=== PATIENT | male | born 1965 | race Caucasian/White ===

== ENCOUNTER 2021-04-16 05:33 | Outpatient (CLI) | payer BC ==
[~2021-04-16] VITALS: Ht 175.3 cm; Wt 90.9 kg
== END 2021-04-16 09:31 | disposition home or self-care (01) ==
LOC: PREOP 05:33
PROVIDERS: ATTEND Internal Medicine
DX: Z01.818 Encounter for other preprocedural examination (principal)

== ENCOUNTER 2021-04-21 07:09 | Day surgery (SDC) | payer BC ==
--- NOTE | 2021-04-16 07:17 | HISTORY AND PHYSICAL ---
DATE OF SERVICE: COLONOSCOPY HISTORY AND PHYSICAL HISTORY OF PRESENT ILLNESS: The patient is a 55-year-old white male being set up for his first screening colonoscopy. He is deemed to be of average risk as he is not aware of any family history for colon cancer or colon polyps. He denies bright red blood per rectum or change in bowel habit, abdominal pain or change in weight. He does report several year history of erectile dysfunction. He has utilized sildenafil in the past to good effect allowing adequate erection for penetration. He has noticed some diminishment in libido over the past several years. Reports no significant alcohol intake. He quit smoking cigarettes about 10 years ago, but is still vaping on a regular basis and would like to get off of nicotine altogether. He had good response in the past to Chantix with no reported side effects. PHYSICAL EXAMINATION: GENERAL: Reveals a white male, appeared to be in no acute distress. VITAL SIGNS: He is 5 feet 9 inches tall, weighing 202 pounds. Blood pressure 132/86. HEENT: Unremarkable. CHEST: Clear. CARDIOVASCULAR: Reveals a regular rate and rhythm without murmur, S3 or S4. ABDOMEN: Soft, supple without mass, organomegaly or tenderness. EXTREMITIES: Reveal no cyanosis, clubbing or edema. RECTAL: Deferred to the time of colonoscopy. ASSESSMENT AND PLAN: 1. The patient was set up for his first screening colonoscopy next Tuesday. Prep instructions with the Suprep kit were given and questions answered. 2. Erectile dysfunction. After discussion about appropriate utilization sildenafil 100 mg tabs, take one-half to one tab 1 to 4 hours prior to relations, given #10. 3. Nicotine dependence, currently in the form of vaping. He was advised to return to discuss with MARK Ashton. A prescription for Chantix will have to be obtained through [facility] as it is currently unavailable in [facility]. 4. Lastly, the patient had been having difficulty with focus. He tried significant other's Adderall noted that it returned his focus to normal and he asked whether or not it might be appropriate for him. He was told that would require more in-depth discussion then what I had time for today setting up colonoscopy and this can be discussed in the future. I did discuss the fact that his cholesterol was mildly elevated not to mention erectile dysfunction, decreased libido and possible ADD would all likely improve cutting back on carbohydrates. He does get a fair amount of sugar in his diet may help all of these conditions and I would rather have him address this issue first. He was told to ideally cut out sweetened tea or at least signifficantly cut back consumption. Job ID: [id number] DocumentID: [id number] Dictated Date: 04/15/2021 16:57:28 Fur Tailor Date: 04/15/2021 17:24:28 Dictated By: YANI LOPEZ MD MTDD
[~2021-04-21] VITALS: Ht 175.3 cm; Wt 90.9 kg
[2021-04-21 07:30] VITALS: BP 117/84
[2021-04-21] MEDS ORDERED: D5 LR IV SOLUTION 1,000 ML IV ONE (07:35)
[2021-04-21] MEDS ORDERED: D5 LR IV SOLUTION 1,000 ML IV STA (07:35)
--- NOTE | 2021-04-21 07:36 | Pre-Op Note & Conscious Sedat ---
Pre-Operative Progress Note H&P Reviewed The H&P was reviewed, patient examined and no changes noted. Date H&P Reviewed: Apr 21, 2021 Time H&P Reviewed: 07:36 Conscious Sedation Pre-Proced ASA Score 1 For ASA 3 and 4: Consider anesthesia and medical clearance. Also, for patients with a history of failed moderate sedation consider anesthesia. Airway Lungs Heart ASA score ASA 1: a normal healthy patient ASA 2: a patient with a mild systemic disease (mid diabetes, controlled hypertension, obesity ASA 3: a patient with a severe systemic disease that limits activity (angina, COPD, prior Myocardial infarction) ASA 4: a patient with an incapacitating disease that is a constant threat to life (CHF, renal failure) ASA 5: a moribund patient not expected to survive 24 hrs. (ruptured aneurysm) ASA 6: a declared brain- patient whose organs are being harvested. For emergent operations, add the letter E after the classification Mallampati Classification Grade 2 Sedation Plan Analgesia, Amnesia, Plan communicated to team members, Discussed options with patient/fam, Discussed risks with patient/fam The patient is an appropriate candidate to undergo the planned procedure, sedation, and anesthesia. The patient immediately re-assessed prior to indication. YANI LOPEZ MD Apr 21, 2021 07:36
[2021-04-21 07:43] VITALS: BP 117/84
[2021-04-21] MEDS ORDERED: MIDAZOLAM 5 MG/5 ML (VERSED) VIAL IV ONE (07:45)
[2021-04-21] MEDS ORDERED: fentaNYL INJ 100 MCG/2 ML AMP IVP ONE (07:45)
[2021-04-21] MEDS ORDERED: LIDOCAINE JELLY 2% 6 ML SYRINGE MM PRN (07:45)
[2021-04-21] MEDS ORDERED: fentaNYL INJ 100 MCG/2 ML AMP ONE (07:46)
[2021-04-21] MEDS ORDERED: MIDAZOLAM 5 MG/5 ML (VERSED) VIAL ONE (07:46)
[2021-04-21 08:20] VITALS: BP 111/78
[2021-04-21 08:25] VITALS: BP 112/75
[2021-04-21 08:58] VITALS: BP 96/65
--- NOTE | 2021-04-21 13:26 | OPERATIVE REPORT ---
DATE OF SERVICE: COLONOSCOPY SUMMARY PRIMARY CARE PROVIDER: Yani Lopez MD INDICATION FOR PROCEDURE: Screening colonoscopy. The patient was placed in the left lateral decubitus position. Prior to undergoing colonoscopy, digital rectal evaluation was performed. Anal sphincter tone was normal. Perianal reflexes intact. The prostate is mildly enlarged, anodular and nontender to digital inspection. No abnormalities were noted on digital inspection of anal canal or distal rectal vault. The colonoscope was then inserted into the rectum and under direct visualization advanced to cecum. Cecum was identified by identification of ileocecal valve, cecal strap and the appendiceal orifice. Photographic documentation was obtained. Careful inspection was made as colonoscope withdrawn. The patient tolerated the procedure well. Quality of prep was good. FINDINGS: There was no evidence for internal or external hemorrhoids. Present in the mid rectum was a 4 mm sessile adenomatous appearing polyp. It was photographed and biopsied and ablated with no subsequent blood loss. The sigmoid colon, descending colon, splenic flexure, transverse colon, hepatic flexure, ascending colon, and cecum were unremarkable. There was no evidence for diverticular disease. ASSESSMENT: One diminutive 4 mm sessile polyp was removed via hot biopsy forceps from the mid-rectum. This is otherwise normal colonoscopy to the cecum. As long as there are no surprise on histopathology, considering the patient reports no family history of colon cancer, will be advocating repeat screening colonoscopy in 10 years. Job ID: [id number] DocumentID: [id number] Dictated Date: 04/21/2021 08:49:22 Ward Attendant Date: 04/21/2021 13:26:40 Dictated By: YANI LOPEZ MD [facility]
== END 2021-04-21 09:04 | disposition home or self-care (01) ==
LOC: ENDO 07:09
PROVIDERS: ATTEND Internal Medicine
DX: Z12.11 Encounter for screening for malignant neoplasm of colon (principal); K62.1 Rectal polyp; N52.9 Male erectile dysfunction, unspecified; F17.290 Nicotine dependence, other tobacco product, uncomplicated
CPT/HCPCS: 88305